=== PATIENT | female | born 2000 | race Two or more races ===

== ENCOUNTER 2021-02-26 10:52 | Emergency (ER) | payer MEDICAID, OTHER ==
[~2021-02-26] VITALS: Ht 165.1 cm; Wt 59.0 kg
[2021-02-26 10:52] VITALS: BP_SYST 100
--- NOTE | 2021-02-26 10:52 | NUR ---
BROUGHT BACK TO BED #5 AND TRIAGED. REPORT GIVEN TO LIT
--- NOTE | 2021-02-26 11:05 | NUR ---
ER at bedside examining patient.
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
[2021-02-26] MEDS: KETOROLAC TROMETHAMINE 60 MG/2 ML VIAL IM ONE (11:14)
[2021-02-26] MEDS ORDERED: IBUP-1969 PO (12:16)
[2021-02-26] MEDS ORDERED: HYDR-3917 PO (12:16)
[2021-02-26 12:22] VITALS: BP_SYST 100
--- NOTE | 2021-02-26 12:23 | NUR ---
Patient given written and verbal discharge instructions and verbalizes understanding. ER MD discussed with patient the results and treatment provided. Patient in stable condition. ID arm band removed. Rx of Motrin and [place] given. Patient educated on pain management and to follow up with PMD. Pain Scale 3/10. Opportunity for questions provided and answered. Medication side effect fact sheet provided.
== END 2021-02-26 12:23 | disposition home or self-care (01) ==
LOC: SED 10:52
DX: S13.4XXA Sprain of ligaments of cervical spine, initial encounter (principal); S20.213A Contusion of bilateral front wall of thorax, initial encounter; V49.9XXA Car occupant (driver) (passenger) injured in unspecified traffic accident, initial encounter; Y93.89 Activity, other specified; Y92.413 State road as the place of occurrence of the external cause; Y99.8 Other external cause status
CPT/HCPCS: 71045; 71110; 72040; 96372; 99284; J1885